=== PATIENT | female | born 1955 | race Caucasian/White ===

== ENCOUNTER 2017-05-14 09:28 | Outpatient (CLI) | payer BC ==
--- NOTE | 2017-05-14 11:11 | XRAY Report ---
COMPLETE LUMBAR SPINE WITH FLEXION AND EXTENSION: 05/14/2017 CLINICAL INDICATION: Back pain. FINDINGS: AP, lateral, oblique, coned-down, lateral flexion, lateral extension views of the lumbar s pine were obtained. The lumbar vertebral bodies demonstrate normal height and alignment. The disk s paces are preserved. Minimal facet arthropathy is seen. There is no evidence of fracture or subluxa tion. No abnormal motion is seen on flexion or extension. IMPRESSION: MINIMAL FACET ARTHROPATHY. NO EVIDENCE OF ABNORMAL MOTION ON FLEXION OR EXTENSION. JOB #: [id number] JOB #:[id number]
== END 2017-05-14 09:29 | disposition home or self-care (01) ==
LOC: DI.S 09:28
PROVIDERS: ATTEND Physician Assistant Medical
DX: M47.896 Other spondylosis, lumbar region (principal)
CPT/HCPCS: 72114